=== PATIENT | female | born 1950 | race Asian ===

== ENCOUNTER 2017-06-01 05:59 | Inpatient (IN) | payer MEDICARE, OTHER ==
[~2017-06-01] VITALS: Ht 170.2 cm; Wt 61.7 kg
[~2017-06-01 05:59] MED LIST: INSULIN; PAIN MED
--- NOTE | 2017-06-01 13:00 | NUR ---
RN NOTES PATIENT ARRIVED ON THE FLOOR VIA GURNEY. IN STABLE CONDITION. NO SOB OR ACUTE DISTRESS. PATIENT ALERT, ORIENTED X3. PATIENT SEEN AMBULATING WITH UNSTEADY GAIT. ORIENTED TO FLOOR. CALL LIGHT WITHIN REACH. DR. ROSALBA VÁSQUEZ AWARE OF PATIENTS ARRIVAL WILL CONTINUE TO MONITOR.
--- NOTE | 2017-06-01 15:00 | NUR ---
RN NOTES DR. ROSALBA MENDOZA PAGED FOR ORDERS WAITING FOR CALL BACK.
[2017-06-01 16:54] VITALS: BP 136/73
[2017-06-01] MEDS ORDERED: LISI-603 PO (17:19)
[2017-06-01] MEDS ORDERED: INSU100V7 SQ (17:19)
[2017-06-01] MEDS ORDERED: SIMV20TA6 PO (17:19)
[2017-06-01] MEDS ORDERED: GABA-534 PO (17:19)
[2017-06-01] MEDS ORDERED: TRAM50TA2 PO (18:10)
--- NOTE | 2017-06-01 19:35 | NUR ---
RN NOTES PATIENT IN BED RESTING NO SOB OR ACUTE DISTRESS NOTED. DR. ROSALBA MENDOZA AWARE WAITING FOR ORDERS. PATIENT IN STABLE CONDITION. WILL ENDORSE CARE TO PM SHIFT.
--- NOTE | 2017-06-01 19:40 | NUR ---
RN INITIAL NOTES PATIENT RECEIVED IN BED, AWAKE, ALERT AND ORIENTED X 4, NOTED WITH NO SOB, BREATHING EVEN AND UNLABORED, NO C/O PAIN, NO S/S OF ACUTE DISTRESS. PATIENT AWARE OF SAFETY NEEDS, WILL CONTINUE TO MONITOR. CALL LIGHT PLACED WITHIN EASY REACH.
[2017-06-01 20:00] VITALS: BP 133/75
[2017-06-01] MEDS ORDERED: MAGNESIUM HYDROXIDE 30 ML UDC PO PRN (20:30)
[2017-06-01] MEDS ORDERED: TRAMADOL HCL 50 MG TABLET PO PRN (20:30)
[2017-06-01] MEDS ORDERED: *INSULIN REGULAR(HUMULIN R)HUM 100 UNIT/ML VIAL SQ PRN (20:30)
[2017-06-01] MEDS ORDERED: ZOLPIDEM TARTRATE 5 MG TABLET PO PRN (20:30)
[2017-06-01] MEDS ORDERED: ACETAMINOPHEN 325 MG TABLET PO PRN (20:30)
[2017-06-01] MEDS ORDERED: DEXTROSE 50%-WATER 50 ML DISP.SYRIN IV PRN (20:30)
[2017-06-01] MEDS ORDERED: ONDANSETRON HCL/PF 4 MG/2 ML VIAL IVP PRN (20:30)
--- NOTE | 2017-06-01 20:36 | NUR ---
RN NOTES RECEIVED ADMISSION ORDERS FORM SUSHMA RG. ALL ORDERS NOTED AND CARRIED OUT.
[2017-06-01] MEDS: BLOOD SUGAR DIAGNOSTIC 1 EACH STRIP VI SCH (21:44)
[2017-06-02] VITALS: BP 185/78
[2017-06-02 00:05] VITALS: BP 200/83
--- NOTE | 2017-06-02 00:15 | NUR ---
RN NOTES PATIENT SEEN AND EXAMINED BY SUSHMA RG, RECEIVED NEW ORDERS FOR IV HYDRATION. ORTHOSTATIC BP CHECK DONE, SURVEY COORDINATOR INFORMED. AWAITING ORDERS.
[2017-06-02] MEDS ORDERED: hydrALAZINE HCL 10 MG TABLET ONE (01:15)
[2017-06-02 01:20] VITALS: BP 185/88
[2017-06-02] MEDS: hydrALAZINE HCL 10 MG TABLET PO PRN ×3 (01:20→21:28)
--- NOTE | 2017-06-02 01:20 | NUR ---
RN NOTE HYDRALAZINE 10 MG 1 TAB PO GIVEN FOR BP: 185/88 HR: 90 BPM
[2017-06-02] MEDS: IV NS 0.9% 1,000 ML IV PRN (02:10)
[2017-06-02] MEDS ORDERED: AMLODIPINE BESYLATE 5 MG TABLET PO ONE ×2 (04:30→06:30)
--- NOTE | 2017-06-02 04:44 | NUR ---
RN NOTES NORVASC 5 MG 1 TAB PO X 1 DOSE GIVEN FOR BP: 167/77 HR: 73 BPM.
--- NOTE | 2017-06-02 04:44 | NUR ---
RN NOTES PATIENT NOTED WITH ELEVATED BP, RELAYED TO SUSHMA RG WITH NEW ORDER FOR NORVASC 5 MG 1 TAB PO X 1 DOSE. ALL ORDERS NOTED AND CARRIED OUT. PATIENT MADE AWARE AND AGREES WITH PLAN OF CARE.
[2017-06-02 06:16] VITALS: BP 176/84
--- NOTE | 2017-06-02 06:16 | NUR ---
RN NOTES PATIENT'S BP RE-ASSESSED, NOTED TO STILL BE ELEVATED @ 176/84 HR @ 77 BPM. RELAYED TO CASINO DUTY MANAGER VENTURA RG WITH NEW ORDER FOR NORVASC 5 MG 1 TAB PO X 1 DOSE. ALL ORDERS NOTED AND CARRIED OUT. PATIENT MADE AWARE AND AGREES WITH PLAN OF CARE. WILL CONTINUE TO MONITOR.
[2017-06-02] MEDS ORDERED: AMLODIPINE BESYLATE 5 MG TABLET PO SCH (06:30)
[2017-06-02] MEDS: BLOOD SUGAR DIAGNOSTIC 1 EACH STRIP VI SCH ×4 (06:31→21:29)
--- NOTE | 2017-06-02 06:31 | NUR ---
RN NOTES ACCUCHECK DONE, BLOOD SUGAR @ 116 MG/DL, NO INSULIN GIVEN PER MD'S ORDER. WILL CONTINUE TO MONITOR.
[2017-06-02 07:11] LABS: CALCIUM, SERUM 9.2 mg/dL (8.5-10.1); MAGNESIUM 1.8 mg/dL (1.8-2.4); PHOSPHORUS 3.3 mg/dL (2.5-4.9); POTASSIUM 3.4 mmol/L (3.5-5.1)
[2017-06-02 07:12] LABS: BASOPHILS % (AUTO) 0.6 % (0.0-2.0); EOSINOPHILS # (AUTO) 0.1 /CMM (0.0-0.7); EOSINOPHILS % (AUTO) 1.2 % (0.0-6.0); HEMATOCRIT 34 % (33-45); HEMOGLOBIN 11.7 g/dL (11.5-14.8); LYMPHOCYTES # (AUTO) 2.9 /CMM (0.8-4.8); LYMPHOCYTES % (AUTO) 38.8 % (20.0-44.0); MEAN CORPUSCULAR HEMOGLOBIN 32 PG (26.0-33.0); MEAN CORPUSCULAR HGB CONC 35 g/dl (31.0-36.0); MEAN CORPUSCULAR VOLUME 92 fL (82-100); MONOCYTES # (AUTO) 0.6 /CMM (0.1-1.30); MONOCYTES % (AUTO) 7.9 % (2.0-12.0); NEUTROPHILS # (AUTO) 3.8 /CMM (1.8-8.9); NEUTROPHILS % (AUTO) 51.5 % (43.0-81.0); PLATELET COUNT (AUTO) 162 /CMM (150-450); RDW COEFFICIENT OF VARIATION 14.4 (11.5-15.0); RED BLOOD CELL COUNT(AUTO) 3.71 MIL/uL (4.0-5.2); WHITE BLOOD COUNT (AUTO) 7.4 K/uL (4.3-11.0)
--- NOTE | 2017-06-02 07:25 | NUR ---
RN CLOSING NOTES PATIENT IN BED, AWAKE, ALERT AND ORIENTED X 4, NO SOB NOTED, BREATHING EVEN AND UNLABORED, NO C/O PAIN AT THIS TIME, IN NO ACUTE DISTRESS. PT CONTINUES TO RECEIVE NS @ 75 ML/HR VIA RFA IV PERIPHERAL LINE. ALL PATIENT'S NEEDS ATTENDED TO. BED PLACED IN LOW POSITION AND LOCKED IN PLACE. PLACED CALL LIGHT WITHIN EASY REACH. WILL ENDORSE TO AM NURSE FOR CONTINUITY OF CARE.
[2017-06-02 08:00] VITALS: BP 164/90
--- NOTE | 2017-06-02 08:00 | NUR ---
MS RN OPENING NOTES PATIENT IN BED AWAKE, VERBALLY RESPONSIVE. NO SOB NOTED. NO SIGN OF ACUTE DISTRESS NOTED. BREATHING EVEN AND UNLABORED.IV ON RFA AND RAC PATENT AND INTACT. SAFETY MEASURES IN PLACE. CALL LIGHT PLACED WITHIN REACH. WILL CONTNUE TO MONITOR ACCORDINGLY.
[2017-06-02] MEDS: LISINOPRIL (20MG) 20 MG TABLET PO SCH (08:53)
[2017-06-02] MEDS: GABAPENTIN 300 MG CAPSULE PO SCH (08:53)
[2017-06-02] MEDS ORDERED: POTASSIUM CHLORIDE 20 MEQ TAB.PRT.SR PO ONE (10:30)
[2017-06-02] MEDS: INSULIN REGULAR, HUMAN 100 UNIT/ML 3 ML VIAL SQ PRN ×3 (12:22→21:32)
[2017-06-02] MEDS: CEFTRIAXONE 1 G in IV D5W 50 ML IV SCH (14:47)
[2017-06-02 16:00] VITALS: BP 173/71
[2017-06-02] MEDS ORDERED: SIMVASTATIN 20 MG TABLET PO SCH (18:00)
--- NOTE | 2017-06-02 19:05 | NUR ---
RN OPENING NOTES RECEIVED REPORT FROM AM RN. PATIENT A/A/O X3, ABLE TO MAKE NEEDS KNOWN. BREATHING EVEN & UNLABORED, ON ROOM AIR. DENIES SOB OR DIFFICULTY BREATHING . PULSES PRESENT. RIGHT FOREARM IV #22 INTACT & PATENT W/ DRESSING CDI & IVF NS @ 75 ML/HR. DENIES ANY PAIN OR DISCOMFORT @ THIS TIME. NOTED W/ STEADY GAIT BUT SAFETY MEASURES STILL IN PLACE W/ SIDE RAILS UP, BED LOCKED & IN LOWEST POSITION & CALL LIGHT WITHIN REACH. WILL CONTINUE TO MONITOR.
[2017-06-03] MEDS: IV NS 0.9% 1,000 ML IV PRN (00:58)
[2017-06-03] MEDS: hydrALAZINE HCL 10 MG TABLET PO PRN (05:30)
[2017-06-03 05:43] VITALS: BP 191/88
[2017-06-03 05:44] VITALS: BP_SYST 200; BP_SYST 203; BP_DIAS 88; BP_DIAS 91
--- NOTE | 2017-06-03 05:46 | NUR ---
RN NOTES ORTHOSTATIC BP COMPLETED. SUPINE 191/88, HR 84; SITTING 203/88, HR 84; STANDING 200/91, HR 90. PATIENT DENIES ANY DIZZINESS, LIGHTHEADEDNESS OR HEADACHE.
--- NOTE | 2017-06-03 06:21 | NUR ---
RN NOTES SPOKE TO VENTURA REGARDING PT'S ELEVATED BP. RECEIVED ORDER TO DC IV FLUIDS & ADMINISTER BP MED DOSE EARLY. ORDER NOTED & CARRIED OUT.
[2017-06-03] MEDS: LISINOPRIL (20MG) 20 MG TABLET PO SCH (06:35)
[2017-06-03 06:51] LABS: BASOPHILS % (AUTO) 0.2 % (0.0-2.0); EOSINOPHILS % (AUTO) 0.6 % (0.0-6.0); HEMATOCRIT 40 % (33-45); HEMOGLOBIN 13.5 g/dL (11.5-14.8); LYMPHOCYTES % (AUTO) 26.2 % (20.0-44.0); MEAN CORPUSCULAR HEMOGLOBIN 31 PG (26.0-33.0); MEAN CORPUSCULAR HGB CONC 34 g/dl (31.0-36.0); MEAN CORPUSCULAR VOLUME 90 fL (82-100); MONOCYTES # (AUTO) 0.5 /CMM (0.1-1.30); MONOCYTES % (AUTO) 5.8 % (2.0-12.0); NEUTROPHILS # (AUTO) 5.3 /CMM (1.8-8.9); NEUTROPHILS % (AUTO) 67.2 % (43.0-81.0); PLATELET COUNT (AUTO) 190 /CMM (150-450); RDW COEFFICIENT OF VARIATION 13.3 (11.5-15.0); RED BLOOD CELL COUNT(AUTO) 4.41 MIL/uL (4.0-5.2); WHITE BLOOD COUNT (AUTO) 7.8 K/uL (4.3-11.0)
[2017-06-03 07:00] LABS: CALCIUM, SERUM 9.8 mg/dL (8.5-10.1)
--- NOTE | 2017-06-03 07:50 | NUR ---
RN OPENING NOTES RECEIVED PT. A/OX4. NO S/S OF RESPIRATORY DISTRESS OR SOB. PT IS ON RA, 02 SAT WNL. PT DENIES PAIN AT THIS TIME. BRUISES ON CHIN NOTED FROM S/P FALL. IV ACCESS LOCATED ON RIGHT FOREARM 22G, SL. SAFETY MEASURES IN PLACE, CALL LIGHT WITHIN REACH. WILL CONTINUE TO MONITOR.
[2017-06-03 08:00] VITALS: BP 188/87
[2017-06-03] MEDS: GABAPENTIN 300 MG CAPSULE PO SCH (08:00)
[2017-06-03] MEDS: INSULIN REGULAR, HUMAN 100 UNIT/ML 3 ML VIAL SQ PRN ×2 (08:04→12:39)
[2017-06-03 08:05] VITALS: BP 188/87
[2017-06-03] MEDS: BLOOD SUGAR DIAGNOSTIC 1 EACH STRIP VI SCH ×2 (08:06→12:00)
[2017-06-03] MEDS ORDERED: AMLODIPINE BESYLATE 10 MG TABLET PO SCH (09:00)
--- NOTE | 2017-06-03 09:30 | NUR ---
RN NOTES PT IV ACCESS PULLED OUT ON HER OWN. PT REFUSES ADDITIONAL IV INSERTION STATING "I AM GOING HOME TODAY".
--- NOTE | 2017-06-03 11:30 | NUR ---
WOUND CARE CONSULT: PT SITTING IN CHAIR, FULLY DRESSED AND STATED THAT SHE IS GOING HOME. PT NOTED TO HAVE DRY ABRASIONS AND BRUISES TO FACE. PT IS CONTINENT AND AMBULATORY WITH CURRENT MAXWELL SCORE OF 20.
[2017-06-03] MEDS ORDERED: SULF1TAB48 PO (13:30)
[2017-06-03] MEDS ORDERED: AMLO10TA2 PO (13:30)
[2017-06-03] MEDS: CEFTRIAXONE 1 G in IV D5W 50 ML IV SCH (15:00)
--- NOTE | 2017-06-03 19:01 | NUR ---
DISCHARGE NOTE PT DISCHARGED TO HOME. VSS, NO S/S OF RESPIRATORY DISTRESS OR SOB. PT PT HAS NO C/O PAIN. ALL DISCHARGE TEACHING GIVEN TO PT, PT VERBALIZES UNDERSTANDING. ALL DISCHARGE PAPERWORK AND BELONGINGS SHEET SIGNED AND COPIED. WOUND PHOTOGRAPHS TAKEN AND PLACED IN CHART.. IV ACCESS REMOVED. ID BAND REMOVED. PRESCRIPTION COPIED AND PLACED IN CHART. PT LEFT IN PRIVATE CAR.
== END 2017-06-03 15:31 | disposition home or self-care (01) | DRG 689 ==
LOC: MED 12:37 → TELE 21:15 → MED 21:50
PROVIDERS: ADMIT Nurse Practitioner Acute Care; ATTEND Nurse Practitioner Acute Care
DX: N39.0 Urinary tract infection, site not specified (principal); N17.0 Acute kidney failure with tubular necrosis; E11.9 Type 2 diabetes mellitus without complications; E87.6 Hypokalemia; B96.20 Unspecified Escherichia coli [E. coli] as the cause of diseases classified elsewhere; G43.909 Migraine, unspecified, not intractable, without status migrainosus; W19.XXXA Unspecified fall, initial encounter; I10 Essential (primary) hypertension; I95.1 Orthostatic hypotension; Y92.9 Unspecified place or not applicable; Z85.3 Personal history of malignant neoplasm of breast; Z87.891 Personal history of nicotine dependence; Z79.4 Long term (current) use of insulin; Z79.899 Other long term (current) drug therapy
CPT/HCPCS: 36415; 71010-TC; 80048-TC; 80061-TC; 82962-TC; 83735-TC; 84100-TC; 85025-TC; 87081-TC; 87086-TC; 93880-TC; A6402; J0696; J1815; J7030; J7060

== ENCOUNTER 2018-09-24 14:21 | Inpatient (IN) | payer MEDICARE, MEDICAID ==
[2018-09-24] VITALS (21 sets, daily range): BP systolic 121–189; BP diastolic 59–109
[~2018-09-24] VITALS: Ht 167.6 cm; Wt 62.6 kg
[~2018-09-24 14:21] MED LIST changes: +AMLO10TA7 PO; +GABA-534 PO; +INSU100V7 SQ; +LISI-603 PO; -PAIN MED; +SIMV20TA6 PO; +SULF1TAB48 PO; +TRAM50TA2 PO
--- NOTE | 2018-09-24 14:24 | NUR ---
PT [id number], FROM HOME, C/O SOB x 1 MONTH, WORSENING TODAY, 94% ON RA ALBUTEROL 1UD GIVEN BY EMS ON SCENE. PT IS AAOX3, NOTED RESPIRATORY DISTRESS, HOOKED TO ROTARY CUTTER, ELEVATED BP NOTED MD AWARE, KEPT RESTED AND COMFORTABLE, WILL CONTINUE TO MONITOR.
--- NOTE | 2018-09-24 14:25 | NUR ---
SEEN AND EXAMINED BY DR. DOUGHERTY.
[2018-09-24] MEDS ORDERED: ASPIRIN 325 MG TABLET PO ONE (14:30)
[2018-09-24] MEDS ORDERED: NITROGLYCERIN 0.4 MG/TAB BOTTLE SL ONE (14:30)
[2018-09-24] MEDS ORDERED: FUROSEMIDE 40 MG/4 ML VIAL IV ONE (14:30)
--- NOTE | 2018-09-24 14:37 | NUR ---
DIFFICULTY ESTABLISHING IV LINE, CHARGE NURSE AND ER MD AWARE.
[2018-09-24] MEDS ORDERED: NITROGLYCERIN 0.4 MG/TAB BOTTLE ONE (14:48)
[2018-09-24] MEDS ORDERED: ASPIRIN 325 MG TABLET ONE (14:49)
[2018-09-24] MEDS ORDERED: INSU100V9 SQ (15:10)
[2018-09-24] MEDS ORDERED: IBUP-1957 PO (15:10)
[2018-09-24] MEDS ORDERED: INSU100I26 SQ (15:10)
[2018-09-24] MEDS ORDERED: ASPI-1152 PO (15:10)
[2018-09-24] MEDS ORDERED: NTG 50 MG/D5W250 ML BOTTL 250 ML IV ONE (15:30)
--- NOTE | 2018-09-24 15:45 | NUR ---
PICC LINE NURSE AT BEDSIDE, CONSENT SIGNED.
--- NOTE | 2018-09-24 16:20 | NUR ---
LABS DRAWNED AND SENT TO LAB.
[2018-09-24] MEDS ORDERED: FUROSEMIDE 40 MG/4 ML VIAL ONE (16:21)
[2018-09-24 16:22] LABS: BASOPHILS # (AUTO) 0.1 /CMM (0.0-0.2); BASOPHILS % (AUTO) 0.8 % (0.0-2.0); EOSINOPHILS % (AUTO) 0.2 % (0.0-6.0); HEMATOCRIT 32 % (33-45); HEMOGLOBIN 10.5 g/dL (11.5-14.8); LYMPHOCYTES # (AUTO) 1.1 /CMM (0.8-4.8); LYMPHOCYTES % (AUTO) 11.2 % (20.0-44.0); MEAN CORPUSCULAR HGB CONC 33 g/dl (31.0-36.0); MEAN CORPUSCULAR VOLUME 91 fL (82-100); MONOCYTES # (AUTO) 0.5 /CMM (0.1-1.30); MONOCYTES % (AUTO) 4.7 % (2.0-12.0); NEUTROPHILS # (AUTO) 8.5 /CMM (1.8-8.9); NEUTROPHILS % (AUTO) 83.1 % (43.0-81.0); PLATELET COUNT (AUTO) 196 /CMM (150-450); RED BLOOD CELL COUNT(AUTO) 3.46 MIL/uL (4.0-5.2); WHITE BLOOD COUNT (AUTO) 10.2 K/uL (4.3-11.0)
--- NOTE | 2018-09-24 16:38 | NUR ---
NTG 5OMG/250ML D52 STARTED AT 50MCG/HR TITRATE TO EFFECT.
[2018-09-24 16:46] LABS: CALCIUM, SERUM 8.8 mg/dL (8.5-10.1); CREATININE 1.4 mg/dL (0.6-1.3)
[2018-09-24 16:59] LABS: POTASSIUM 3.3 mmol/L (3.5-5.1)
[2018-09-24] MEDS ORDERED: MAG HYDROX/AL HYDROX/SIMETH 30 ML UDC PO PRN (17:30)
[2018-09-24] MEDS ORDERED: DEXTROSE 50%-WATER 50 ML DISP.SYRIN IV PRN (17:30)
[2018-09-24] MEDS ORDERED: TRAMADOL HCL 50 MG TABLET PO PRN (17:30)
[2018-09-24] MEDS ORDERED: ONDANSETRON HCL/PF 4 MG/2 ML VIAL IVP PRN (17:30)
[2018-09-24] MEDS ORDERED: Z GUARD REMEDY 2 OZ OINT TP PRN (17:30)
[2018-09-24] MEDS ORDERED: ZOLPIDEM TARTRATE 5 MG TABLET PO PRN (17:30)
[2018-09-24] MEDS ORDERED: MAGNESIUM HYDROXIDE 30 ML UDC PO PRN (17:30)
--- NOTE | 2018-09-24 17:32 | NUR ---
ICU BED 253 GIVEN
--- NOTE | 2018-09-24 17:45 | NUR ---
REPOR GIVEN TO FRANCO WALLACE FOR JESENIA. NTG DRIP ONGOING, TITRATE TO EFFECT.
--- NOTE | 2018-09-24 18:55 | NUR ---
RN INITIAL NOTES RECEIVED PT AWAKE, A/OX4. ON 02 VIA NC AT 2LPM. NO RESPIRATORY DISTRESS NOTED. NO SOB NOTED. DENIES ANY PAIN. MANDI PICC IN PLACE. NITRO DRIP AT 50MCG/MIN INFUSING. PT CONNECTED TO MONITOR. FC INSERTED, CLEAR YELLOW URINE NOTED. NO HEMATURIA NOTED. BODY ASSESSMENT DONE. PICTURES TAKEN FOR SKIN ISSUES NOTED. PT ORIENTED TO ROOM AND USE OF CALL LIGHT. PT COMFORTABLE. DR MUIR AWARE OF ADMISSION. WILL MONITOR
[2018-09-24] MEDS: FUROSEMIDE 40 MG/4 ML VIAL IV SCH (19:33)
[2018-09-24] MEDS: BLOOD SUGAR DIAGNOSTIC 1 EACH STRIP IN SCH ×2 (19:33→22:05)
[2018-09-24] MEDS: LISINOPRIL (20MG) 20 MG TABLET PO SCH (19:34)
[2018-09-24] MEDS: SIMVASTATIN 20 MG TABLET PO SCH (19:34)
[2018-09-24] MEDS: ASPIRIN EC 81 MG TABLET.DR PO SCH (19:34)
[2018-09-24] MEDS: ACETAMINOPHEN 325 MG TABLET PO PRN (19:34)
[2018-09-24] MEDS: NTG 50 MG/D5W250 ML BOTTL 250 ML IV PRN (19:45)
--- NOTE | 2018-09-24 20:00 | NUR ---
MANUAL WINDER - NOTES - RECEIVED PT AWAKE, A/OX4. ON 02 VIA NC AT 2LPM. NO RESPIRATORY DISTRESS NOTED. NO SOB NOTED. DENIES ANY PAIN. MANDI PICC IN PLACE. NITRO DRIP AT 50MCG/MIN INFUSING. PT CONNECTED TO MONITOR. FC INSERTED, CLEAR YELLOW URINE NOTED. NO HEMATURIA NOTED. PT ORIENTED TO ROOM AND USE OF CALL LIGHT. PT COMFORTABLE. WILL MONITOR
[2018-09-24] MEDS: HYDROCODONE/APAP 5/325MG 1 EACH TABLET PO PRN (20:40)
[2018-09-24] MEDS ORDERED: ENOXAPARIN SODIUM 40 MG/0.4 ML DISP.SYRIN SQ SCH (21:00)
[2018-09-24] MEDS: GABAPENTIN 300 MG CAPSULE PO SCH (21:52)
[2018-09-24] MEDS: *INSULIN REGULAR(HUMULIN R)HUM 100 UNIT/ML VIAL SQ PRN (22:27)
[2018-09-25] VITALS (57 sets, daily range): BP systolic 101–183; BP diastolic 45–97
[2018-09-25] MEDS ORDERED: NTG 50 MG/D5W250 ML BOTTL 250 ML IV ONE (01:53)
[2018-09-25] MEDS: NTG 50 MG/D5W250 ML BOTTL 250 ML IV PRN (02:02)
[2018-09-25 04:41] LABS: BASOPHILS # (AUTO) 0.1 /CMM (0.0-0.2); BASOPHILS % (AUTO) 0.7 % (0.0-2.0); EOSINOPHILS % (AUTO) 1.1 % (0.0-6.0); HEMATOCRIT 29 % (33-45); HEMOGLOBIN 9.7 g/dL (11.5-14.8); LYMPHOCYTES # (AUTO) 2.1 /CMM (0.8-4.8); LYMPHOCYTES % (AUTO) 25.2 % (20.0-44.0); MEAN CORPUSCULAR HGB CONC 34 g/dl (31.0-36.0); MEAN CORPUSCULAR VOLUME 90 fL (82-100); MONOCYTES # (AUTO) 0.7 /CMM (0.1-1.30); MONOCYTES % (AUTO) 8.9 % (2.0-12.0); NEUTROPHILS # (AUTO) 5.2 /CMM (1.8-8.9); NEUTROPHILS % (AUTO) 64.1 % (43.0-81.0); PLATELET COUNT (AUTO) 187 /CMM (150-450); RED BLOOD CELL COUNT(AUTO) 3.18 MIL/uL (4.0-5.2); WHITE BLOOD COUNT (AUTO) 8.2 K/uL (4.3-11.0)
[2018-09-25 04:53] LABS: ALBUMIN 2.6 g/dL (3.4-5.0); BILIRUBIN,TOTAL 0.3 mg/dL (0.2-1.0); CALCIUM, SERUM 8.9 mg/dL (8.5-10.1); CREATININE 1.5 mg/dL (0.6-1.3); MAGNESIUM 1.9 mg/dL (1.8-2.4); PHOSPHORUS 4.9 mg/dL (2.5-4.9); POTASSIUM 3.7 mmol/L (3.5-5.1); TOTAL PROTEIN, SERUM 6.4 g/dL (6.4-8.2)
[2018-09-25 05:04] LABS: THYROID STIMULATING HORMONE 1.263 uIU/mL (0.358-3.74)
--- NOTE | 2018-09-25 07:00 | NUR ---
RN NOTES RECEIVED PT ON BED , A/Ox4, ON RA, RESPIRATION EVEN AND UNLABORED,NO SOB NOTED, ON TELE SR HR IN 80'S, BURRELL DRINING TO GRVITY , NITRO GTT AT 50 MCG/MIN RUNNING VIA R UPPER ARM PICC LINE , SITE CLEAN, DRY AND INTACT, SR UP X3, CALL LIGHT WITHIN EASY REACH, BED LOCKED AND IN LOWEST POSITION , CONTINUE TO MONITOR .
[2018-09-25] MEDS: LISINOPRIL (20MG) 20 MG TABLET PO SCH (08:35)
[2018-09-25] MEDS: FUROSEMIDE 40 MG/4 ML VIAL IV SCH ×2 (08:35→16:41)
[2018-09-25] MEDS: ASPIRIN EC 81 MG TABLET.DR PO SCH (08:35)
[2018-09-25] MEDS: BLOOD SUGAR DIAGNOSTIC 1 EACH STRIP IN SCH ×4 (08:36→21:48)
[2018-09-25] MEDS: POTASSIUM CHLORIDE 20 MEQ TAB.PRT.SR PO SCH ×3 (08:38→10:05)
[2018-09-25] MEDS: ENOXAPARIN SODIUM 60 MG/0.6 ML DISP.SYRIN SQ SCH ×2 (08:38→21:35)
--- NOTE | 2018-09-25 09:00 | NUR ---
RN NOTES DR SHERMAN NOTIFED REGARDING EKG AND TROPONIN RESULTS,.
--- NOTE | 2018-09-25 09:56 | NUR ---
RN NOTES SBP IN 170'S -180'S, DR SHERMAN NOTIFIED , NEW ORDER RECEIVED , CONTINUE TO MONITOR .
[2018-09-25] MEDS: hydrALAZINE HCL 50 MG TABLET PO SCH ×3 (10:05→16:39)
[2018-09-25] MEDS: INSULIN REGULAR, HUMAN 100 UNIT/ML 3 ML VIAL SQ PRN (11:41)
[2018-09-25] MEDS: METOPROLOL TARTRATE 50 MG TABLET PO SCH ×2 (11:43→17:11)
--- NOTE | 2018-09-25 15:00 | NUR ---
RN NOTES ZT=374/89 HR= 70, DR SHERMAN NOTIFED , NEW ORDER RECEIVED, CONTINUE TO MONITOR .
[2018-09-25] MEDS: HYDROCODONE/APAP 5/325MG 1 EACH TABLET PO PRN (15:35)
[2018-09-25] MEDS: ISOSORBIDE DINITRATE (20MG) 20 MG TABLET PO SCH (16:39)
[2018-09-25] MEDS: SIMVASTATIN 20 MG TABLET PO SCH (17:10)
--- NOTE | 2018-09-25 18:20 | NUR ---
RN NOTES PT TRANSFERRED TO ROOM 119-1 , TELE STATUS, VIA ACLS PROTOCOL WITH ALL BELONGING IN STABLE CONDITION. WILL ENDORSE TO RELAY RECORD CLERK NURSE FOR CONTINUITY CARE.
--- NOTE | 2018-09-25 18:40 | NUR ---
RN NOTES PT CONFUSED , AGITATED, PULLED HER BURRELL CATHETER OUT . OUT OF BED WANTS TO LEAVE AND GO HOME, REORIENTED PT TO ROOM AND SURROUNDING. PT SILL AGITATED, AND COMBATIVE . CONTINUE TO MONITOR .
--- NOTE | 2018-09-25 19:15 | NUR ---
RN NOTES PT UP AND WALKING IN [address] AND STILL CONFUSED AND AGITATED, CESAR HARE FARM MECHANIC NOTIFED, NEW ORDER RECEIVED , WILL ENDORSE TO LEAN SIX SIGMA BLACK BELT NURSE FOR CONTINUITY OF CARE.
[2018-09-25] MEDS ORDERED: LORAZEPAM INJ 2 MG/ML VIAL IV ONE (19:30)
[2018-09-25] MEDS: GABAPENTIN 300 MG CAPSULE PO SCH (21:35)
[2018-09-25] MEDS: *INSULIN REGULAR(HUMULIN R)HUM 100 UNIT/ML VIAL SQ PRN (21:50)
--- NOTE | 2018-09-25 22:00 | NUR ---
SPOKE TO PTS NEPHEW PAULINE [phone], HE WAS UPDATED ON PTS CONDITION AND PLAN OF CARE. I TOLD HIM THAT SHE IS GETTING CONFUSED, AGITATED AND COMBATIVE. HE REQUESTED TO HAVE THE PT EVALUATED BY LINNEA, WILL ENDORSE TO DAY SHIFT. HE SAID PTS WILL COME TO HELP CALM DOWN PT.
--- NOTE | 2018-09-25 22:20 | NUR ---
PT FINALLY CALMED DOWN AND WENT TO SLEEP, PT INFORMED OF PT CONDITION, PT IS SLEEPING COMFORTABLY. WILL CONTINUE TO MONITOR
[2018-09-26] VITALS: BP 147/71
[2018-09-26] MEDS: METOPROLOL TARTRATE 50 MG TABLET PO SCH ×5 (00:11→23:51)
--- NOTE | 2018-09-26 03:45 | NUR ---
PT IS TRYING TO PULL OUT IV, PULL OF GOWN AND GET UP AND FALL, LABOR AND EMPLOYMENT PARALEGAL CESAR LOCKE NOTIFIED OF PT BEHAVIOR AND GAVE ORDER FOR 1:1 SITTER
[2018-09-26 04:00] VITALS: BP 136/69
[2018-09-26 06:28] LABS: BASOPHILS # (AUTO) 0.1 /CMM (0.0-0.2); EOSINOPHILS % (AUTO) 1.7 % (0.0-6.0); HEMATOCRIT 31 % (33-45); HEMOGLOBIN 10.4 g/dL (11.5-14.8); LYMPHOCYTES # (AUTO) 2.1 /CMM (0.8-4.8); LYMPHOCYTES % (AUTO) 27.8 % (20.0-44.0); MEAN CORPUSCULAR HGB CONC 34 g/dl (31.0-36.0); MEAN CORPUSCULAR VOLUME 90 fL (82-100); MONOCYTES # (AUTO) 0.6 /CMM (0.1-1.30); MONOCYTES % (AUTO) 8.6 % (2.0-12.0); NEUTROPHILS # (AUTO) 4.6 /CMM (1.8-8.9); NEUTROPHILS % (AUTO) 60.9 % (43.0-81.0); PLATELET COUNT (AUTO) 207 /CMM (150-450); RED BLOOD CELL COUNT(AUTO) 3.43 MIL/uL (4.0-5.2); WHITE BLOOD COUNT (AUTO) 7.5 K/uL (4.3-11.0)
[2018-09-26 06:57] LABS: ALBUMIN 2.9 g/dL (3.4-5.0); BILIRUBIN,TOTAL 0.5 mg/dL (0.2-1.0); CALCIUM, SERUM 9.2 mg/dL (8.5-10.1); CREATININE 1.5 mg/dL (0.6-1.3); MAGNESIUM 1.9 mg/dL (1.8-2.4); PHOSPHORUS 3.6 mg/dL (2.5-4.9); POTASSIUM 3.4 mmol/L (3.5-5.1); TOTAL PROTEIN, SERUM 7.1 g/dL (6.4-8.2)
--- NOTE | 2018-09-26 07:00 | NUR ---
RN NOTES RECEIVED PT ON BED, ALERT/ CONFUSED, COOPERATIVE AT THIS TIME ,ON RA , RESPIRATION EVEN AND UNLABORED, NO SOB NOTED, ON TELE SR HR IN 70'S , SITTER AT THE BEDSIDE FOR PT SAFETY , R UPPER ARM PICC LINE SITE CLEAN, DRY, INTACT, SR UP x3, CALL LIGHT WITHIN EASY REACH, BED LOCKED AND IN LOWEST POSITION , CONTINUE TO MONITOR .
[2018-09-26 08:00] VITALS: BP 148/74
[2018-09-26] MEDS: BLOOD SUGAR DIAGNOSTIC 1 EACH STRIP IN SCH ×4 (08:12→21:31)
[2018-09-26] MEDS: ENOXAPARIN SODIUM 60 MG/0.6 ML DISP.SYRIN SQ SCH ×2 (08:15→21:29)
[2018-09-26] MEDS: ISOSORBIDE DINITRATE (20MG) 20 MG TABLET PO SCH ×2 (08:17→16:22)
[2018-09-26] MEDS: FUROSEMIDE 40 MG/4 ML VIAL IV SCH ×2 (08:18→16:21)
[2018-09-26] MEDS: hydrALAZINE HCL 50 MG TABLET PO SCH ×3 (08:18→16:22)
[2018-09-26] MEDS: LISINOPRIL (20MG) 20 MG TABLET PO SCH (08:18)
[2018-09-26] MEDS: ASPIRIN EC 81 MG TABLET.DR PO SCH (08:19)
[2018-09-26] MEDS: AMLODIPINE BESYLATE 5 MG TABLET PO SCH (09:33)
[2018-09-26] MEDS: POTASSIUM CHLORIDE 20 MEQ TAB.PRT.SR PO SCH ×2 (09:33→11:31)
[2018-09-26] MEDS: INSULIN REGULAR, HUMAN 100 UNIT/ML 3 ML VIAL SQ PRN ×2 (11:54→16:57)
--- NOTE | 2018-09-26 15:25 | NUR ---
FRANCO AMOS PT IS STILL CONFUSED AND AGITATED, PSYCH CONSULT ORDERED , [facility] NOTIFIED AND FACE SHEET FAXED TO [facility]
[2018-09-26 16:00] VITALS: BP 102/63
[2018-09-26] MEDS: SIMVASTATIN 20 MG TABLET PO SCH (17:00)
--- NOTE | 2018-09-26 18:13 | NUR ---
RN NOTES NO SIGNIFICANT CHANGES NOTED ON THIS SHIFT, SITTER AT THE BEDSIDE FOR PT SAFETY, VSS STABLE, WILL ENDOSE TO DIGITAL ASSOCIATE NURSE FOR CONTINUITY OF CARE .
--- NOTE | 2018-09-26 19:15 | NUR ---
RN M/S NOTE PATIENT IS AOX2-3, SPEECH CLEAR, ABLE TO MAKE NEEDS KNOWN, ON ROOM AIR, NO S/SX OF CARDIAC OR RESPIRATORY DISTRESS, MANDI PICC LINE, PATENT FLUSHING WELL, SITE IS CLEAN AND DRY, SKIN KEPT CLEAN AND DRY, WILL CONTINUE TO MONITOR FOR ANY CHANGES IN CONDITION, SAFETY MAINTAINED AT ALL TIMES BED IN LOW LOCKED POSITION, CALL LIGHT WITHIN REACH.
[2018-09-26 20:00] VITALS: BP 105/55
[2018-09-26] MEDS: *INSULIN REGULAR(HUMULIN R)HUM 100 UNIT/ML VIAL SQ PRN (21:30)
[2018-09-26] MEDS: ESCITALOPRAM OXALATE (10 MG) 10 MG TABLET PO SCH (21:31)
[2018-09-26] MEDS: GABAPENTIN 300 MG CAPSULE PO SCH (21:31)
[2018-09-27 04:00] VITALS: BP 122/68
[2018-09-27] MEDS: METOPROLOL TARTRATE 50 MG TABLET PO SCH ×5 (05:06→21:37)
[2018-09-27 06:31] LABS: BASOPHILS # (AUTO) 0.1 /CMM (0.0-0.2); BASOPHILS % (AUTO) 1.1 % (0.0-2.0); HEMATOCRIT 32 % (33-45); HEMOGLOBIN 10.8 g/dL (11.5-14.8); LYMPHOCYTES # (AUTO) 2.4 /CMM (0.8-4.8); LYMPHOCYTES % (AUTO) 38.1 % (20.0-44.0); MEAN CORPUSCULAR HGB CONC 34 g/dl (31.0-36.0); MEAN CORPUSCULAR VOLUME 90 fL (82-100); MONOCYTES # (AUTO) 0.7 /CMM (0.1-1.30); MONOCYTES % (AUTO) 10.9 % (2.0-12.0); NEUTROPHILS # (AUTO) 2.9 /CMM (1.8-8.9); NEUTROPHILS % (AUTO) 46.9 % (43.0-81.0); PLATELET COUNT (AUTO) 217 /CMM (150-450); RED BLOOD CELL COUNT(AUTO) 3.58 MIL/uL (4.0-5.2); WHITE BLOOD COUNT (AUTO) 6.2 K/uL (4.3-11.0)
[2018-09-27 06:50] LABS: ALBUMIN 2.9 g/dL (3.4-5.0); BILIRUBIN,TOTAL 0.6 mg/dL (0.2-1.0); CALCIUM, SERUM 9.3 mg/dL (8.5-10.1); CREATININE 1.6 mg/dL (0.6-1.3); MAGNESIUM 2.3 mg/dL (1.8-2.4); PHOSPHORUS 3.7 mg/dL (2.5-4.9); POTASSIUM 3.8 mmol/L (3.5-5.1); TOTAL PROTEIN, SERUM 7.3 g/dL (6.4-8.2)
--- NOTE | 2018-09-27 07:05 | NUR ---
MS RN OPENING NOTES RECEIVED PT LYING ON BED,ALERT/ORIENTED X2.ON ROOM AIR,TOLERATING WELL.NO SOB AND ACUTE DISTRESS NOTED.1:1 SITTER IS AT BEDSIDE.NO PAIN NOTED FOR NOW.RIGHT UA PICC LINE PRESENT.SITE IS CLEAN,DRY AND INTACT.NO INFILTRATION NOTED.BED IS IN LOW POSITION AND LOCKED,CALL LIGHT IS WITHIN REACH.WILL CONTINUE TO MONITOR THE PT CLOSELY.
[2018-09-27] MEDS: BLOOD SUGAR DIAGNOSTIC 1 EACH STRIP IN SCH ×4 (07:50→21:41)
[2018-09-27] MEDS: INSULIN REGULAR, HUMAN 100 UNIT/ML 3 ML VIAL SQ PRN ×3 (07:51→17:10)
[2018-09-27 08:00] VITALS: BP 149/74
[2018-09-27] MEDS: FUROSEMIDE 40 MG/4 ML VIAL IV SCH ×2 (09:07→16:49)
[2018-09-27] MEDS: AMLODIPINE BESYLATE 5 MG TABLET PO SCH (09:08)
[2018-09-27] MEDS: ISOSORBIDE DINITRATE (20MG) 20 MG TABLET PO SCH ×2 (09:08→16:51)
[2018-09-27] MEDS: LISINOPRIL (20MG) 20 MG TABLET PO SCH (09:08)
[2018-09-27] MEDS: hydrALAZINE HCL 50 MG TABLET PO SCH ×3 (09:09→16:49)
[2018-09-27] MEDS: ASPIRIN EC 81 MG TABLET.DR PO SCH (09:10)
[2018-09-27] MEDS: ENOXAPARIN SODIUM 60 MG/0.6 ML DISP.SYRIN SQ SCH ×2 (11:51→21:00)
[2018-09-27 16:00] VITALS: BP 113/60
--- NOTE | 2018-09-27 16:40 | NUR ---
MS RN NOTES EDGARDO,FERRYBOAT OPERATOR FROM NUCLEAR MEDICINE ORDERED TO KEEP NPO MIDNIGHT,AND HOLD BP MEDS IN AM TO PERFORM NM MYOCARDIAL STRESS TEST.NEW ORDERS NOTED AND CARRIED OUT.FAMILY AND PT MADE AWARE.
[2018-09-27] MEDS: SIMVASTATIN 20 MG TABLET PO SCH (17:02)
--- NOTE | 2018-09-27 18:57 | NUR ---
MS RN CLOSING NOTES PT IS LYING ON BED,ALERT/ORIENTED X2.ON ROOM AIR,TOLERATING WELL.NO SOB AND ACUTE DISTRESS NOTED.1:1 SITTER IS AT BEDSIDE.NO PAIN NOTED FOR NOW.RIGHT UA PICC LINE PRESENT.SITE IS CLEAN,DRY AND INTACT.NO INFILTRATION NOTED.RESPIRATION IS EVEN AND NONLABORED.NO SIGNIFICANT CHANGES NOTED IN THE SHIFT.BED IS IN LOW POSITION AND LOCKED,CALL LIGHT IS WITHIN REACH.ENDORSED TO SUPERVISOR FLOOR ASSEMBLY RN FOR JESENIA AND NPO STATUS AT MIDNIGHT.
[2018-09-27 20:00] VITALS: BP 133/66
--- NOTE | 2018-09-27 20:00 | NUR ---
RN INITIAL NOTES RECEIVED PT LYING ON BED,ALERT/ORIENTED X2.ON ROOM AIR,TOLERATING WELL.NO SOB AND ACUTE DISTRESS NOTED.1:1 SITTER IS AT BEDSIDE.NO PAIN NOTED FOR NOW.RIGHT UA PICC LINE PRESENT.SITE IS CLEAN,DRY AND INTACT.NO INFILTRATION NOTED.BED IS IN LOW POSITION AND LOCKED,CALL LIGHT IS WITHIN REACH.WILL CONTINUE TO MONITOR THE PT CLOSELY.
[2018-09-27] MEDS: GABAPENTIN 300 MG CAPSULE PO SCH (21:40)
[2018-09-27] MEDS: ESCITALOPRAM OXALATE (10 MG) 10 MG TABLET PO SCH (21:41)
[2018-09-27] MEDS: *INSULIN REGULAR(HUMULIN R)HUM 100 UNIT/ML VIAL SQ PRN (21:48)
[2018-09-28 04:00] VITALS: BP 144/65
--- NOTE | 2018-09-28 06:43 | NUR ---
RN CLOSING NOTES PT IS LYING ON BED,ALERT/ORIENTED X2.ON ROOM AIR,TOLERATING WELL.NO SOB AND ACUTE DISTRESS NOTED.1:1 SITTER IS AT BEDSIDE.NO PAIN NOTED FOR NOW.RIGHT UA PICC LINE PRESENT S/L.SITE IS CLEAN,DRY AND INTACT.NO INFILTRATION NOTED.RESPIRATION IS EVEN AND NONLABORED. PT KEPT NPO. NO SIGNIFICANT CHANGES NOTED IN THE SHIFT.BED IS IN LOW POSITION AND LOCKED,CALL LIGHT IS WITHIN REACH.WILL ENDORSE TO AM RN FOR JESENIA NPO.
--- NOTE | 2018-09-28 07:00 | NUR ---
MS RN OPENING NOTES RECEIVED PT LYING ON BED,ALERT/ORIENTED X2.ON ROOM AIR,TOLERATING WELL.NO SOB AND ACUTE DISTRESS NOTED.NO PAIN NOTED FOR NOW.RIGHT UA PICC LINE 3 PORT PRESENT.SITE IS CLEAN,DRY AND INTACT.ON NPO FOR MYOCARDIAL STRESS TEST.NO INFILTRATION NOTED.BED IS IN LOW POSITION AND LOCKED,CALL LIGHT IS WITHIN REACH.WILL CONTINUE TO MONITOR THE PT CLOSELY.
[2018-09-28] MEDS: BLOOD SUGAR DIAGNOSTIC 1 EACH STRIP IN SCH ×4 (07:51→21:48)
[2018-09-28] MEDS: INSULIN REGULAR, HUMAN 100 UNIT/ML 3 ML VIAL SQ PRN ×2 (07:52→17:11)
[2018-09-28 08:00] VITALS: BP 114/56
[2018-09-28] MEDS ORDERED: REGADENOSON 0.4 MG/5 ML DISP.SYRIN IVP ONE (08:00)
--- NOTE | 2018-09-28 08:00 | NUR ---
MS RN NOTES YVONNE REYNOSO STONE SPREADER OPERATOR SEEN THE PT AND ADMINISTERED IV LEXISCAN.PT TOLERATED WELL
--- NOTE | 2018-09-28 08:15 | NUR ---
MS RN NOTES PT SEND TO DO THE MYOCARDIAL STRESS TEST.
--- NOTE | 2018-09-28 09:30 | NUR ---
MS RN NOTES PT CAME BACK FROM STRESS TEST,EDGARDO TEJADA ORDERED TO RESUME ALL THE ORDERS AND AFTER AN HOUR WILL WINDOW AND DOOR INSTALLER THE PT AGAIN FOR 2ND STEP OF STRESS TEST.
[2018-09-28] MEDS: ASPIRIN EC 81 MG TABLET.DR PO SCH (09:43)
[2018-09-28] MEDS: FUROSEMIDE 40 MG TABLET PO SCH (09:43)
[2018-09-28] MEDS: AMLODIPINE BESYLATE 5 MG TABLET PO SCH (09:51)
[2018-09-28] MEDS: LISINOPRIL (20MG) 20 MG TABLET PO SCH (09:52)
[2018-09-28] MEDS: hydrALAZINE HCL 50 MG TABLET PO SCH ×3 (09:52→17:03)
[2018-09-28] MEDS: ISOSORBIDE DINITRATE (20MG) 20 MG TABLET PO SCH ×2 (09:52→17:03)
[2018-09-28] MEDS: ENOXAPARIN SODIUM 60 MG/0.6 ML DISP.SYRIN SQ SCH ×2 (09:53→21:48)
[2018-09-28 10:41] LABS: BASOPHILS # (AUTO) 0.1 /CMM (0.0-0.2); BASOPHILS % (AUTO) 1.2 % (0.0-2.0); EOSINOPHILS % (AUTO) 1.7 % (0.0-6.0); HEMATOCRIT 33 % (33-45); HEMOGLOBIN 11.1 g/dL (11.5-14.8); LYMPHOCYTES # (AUTO) 1.6 /CMM (0.8-4.8); LYMPHOCYTES % (AUTO) 27.7 % (20.0-44.0); MEAN CORPUSCULAR HGB CONC 33 g/dl (31.0-36.0); MEAN CORPUSCULAR VOLUME 91 fL (82-100); MONOCYTES # (AUTO) 0.5 /CMM (0.1-1.30); MONOCYTES % (AUTO) 8.9 % (2.0-12.0); NEUTROPHILS # (AUTO) 3.4 /CMM (1.8-8.9); NEUTROPHILS % (AUTO) 60.5 % (43.0-81.0); PLATELET COUNT (AUTO) 206 /CMM (150-450); RED BLOOD CELL COUNT(AUTO) 3.69 MIL/uL (4.0-5.2); WHITE BLOOD COUNT (AUTO) 5.7 K/uL (4.3-11.0)
[2018-09-28] MEDS: METOPROLOL TARTRATE 50 MG TABLET PO SCH ×2 (12:00→17:03)
[2018-09-28 12:58] LABS: CALCIUM, SERUM 9.1 mg/dL (8.5-10.1); CREATININE 1.9 mg/dL (0.6-1.3); POTASSIUM 3.5 mmol/L (3.5-5.1)
[2018-09-28 13:03] LABS: BILIRUBIN,TOTAL 0.3 mg/dL (0.2-1.0); MAGNESIUM 2.2 mg/dL (1.8-2.4); TOTAL PROTEIN, SERUM 7.6 g/dL (6.4-8.2)
[2018-09-28 13:13] LABS: PHOSPHORUS 4.2 mg/dL (2.5-4.9)
[2018-09-28 16:00] VITALS: BP 114/56
[2018-09-28] MEDS: SIMVASTATIN 20 MG TABLET PO SCH (17:02)
--- NOTE | 2018-09-28 18:30 | NUR ---
MS RN NOTES CALLED AND SAID HE WILL DISCUSS WITH ABOUT THE DISCHARGE PROCESS AND WILL LET US KNOW ABOUT IT.
[2018-09-28] MEDS: ACETAMINOPHEN 325 MG TABLET PO PRN (18:31)
--- NOTE | 2018-09-28 18:35 | NUR ---
MS RN CLOSING NOTES PT IS LYING ON BED,ALERT/ORIENTED X2.ON ROOM AIR,TOLERATING WELL.NO SOB AND ACUTE DISTRESS NOTED.NO PAIN NOTED FOR NOW.RIGHT UA PICC LINE 3 PORT PRESENT.SITE IS CLEAN,DRY AND INTACT.NO INFILTRATION NOTED.BED IS IN LOW POSITION AND LOCKED,CALL LIGHT IS WITHIN REACH.RESPIRATION IS EVEN AND NON LABORED.NO SIGNIFICANT CHANGES NOTED IN THE SHIFT.PAIN MEDS ARE GIVEN.ENDORSED TO VESSEL SPECIALIST RN FOR JESENIA AND CONTINUE TO MONITOR THE PT PAIN LEVEL.
[2018-09-28 20:00] VITALS: BP 99/45
--- NOTE | 2018-09-28 20:00 | NUR ---
RN INITIAL NOTES RECEIVED PT SITTING ON BED, AT BED SIDE. ALERT/ORIENTED X2.ON ROOM AIR,TOLERATING WELL.NO SOB AND ACUTE DISTRESS NOTED.NO PAIN NOTED FOR NOW.RIGHT UA PICC LINE 3 PORT PRESENT.SITE IS CLEAN,DRY AND INTACT.NO INFILTRATION NOTED.BED IS IN LOW POSITION AND LOCKED,CALL LIGHT IS WITHIN REACH.WILL CONTINUE TO MONITOR PT CLOSELY.
[2018-09-28] MEDS: GABAPENTIN 300 MG CAPSULE PO SCH (21:48)
[2018-09-28] MEDS: ESCITALOPRAM OXALATE (10 MG) 10 MG TABLET PO SCH (21:48)
[2018-09-28] MEDS: *INSULIN REGULAR(HUMULIN R)HUM 100 UNIT/ML VIAL SQ PRN (21:53)
[2018-09-29] VITALS: BP 121/61
[2018-09-29] MEDS: METOPROLOL TARTRATE 50 MG TABLET PO SCH ×3 (00:45→12:39)
[2018-09-29 04:00] VITALS: BP 129/69
[2018-09-29 06:03] LABS: BASOPHILS # (AUTO) 0.1 /CMM (0.0-0.2); BASOPHILS % (AUTO) 1.3 % (0.0-2.0); EOSINOPHILS % (AUTO) 2.5 % (0.0-6.0); HEMATOCRIT 33 % (33-45); HEMOGLOBIN 11.1 g/dL (11.5-14.8); LYMPHOCYTES # (AUTO) 2.5 /CMM (0.8-4.8); LYMPHOCYTES % (AUTO) 32.5 % (20.0-44.0); MEAN CORPUSCULAR HGB CONC 34 g/dl (31.0-36.0); MEAN CORPUSCULAR VOLUME 90 fL (82-100); MONOCYTES # (AUTO) 0.6 /CMM (0.1-1.30); NEUTROPHILS # (AUTO) 4.3 /CMM (1.8-8.9); NEUTROPHILS % (AUTO) 55.7 % (43.0-81.0); PLATELET COUNT (AUTO) 211 /CMM (150-450); WHITE BLOOD COUNT (AUTO) 7.7 K/uL (4.3-11.0)
[2018-09-29 06:15] LABS: CALCIUM, SERUM 9.4 mg/dL (8.5-10.1); CREATININE 1.8 mg/dL (0.6-1.3); POTASSIUM 4.1 mmol/L (3.5-5.1)
--- NOTE | 2018-09-29 06:17 | NUR ---
RN CLOSING NOTES PT IS LYING ON BED,ALERT/ORIENTED X2.ON ROOM AIR,TOLERATING WELL.NO SOB AND ACUTE DISTRESS NOTED. NO PAIN NOTED FOR NOW.RIGHT UA PICC LINE PRESENT S/L.SITE IS CLEAN,DRY AND INTACT.NO INFILTRATION NOTED.RESPIRATION IS EVEN AND NONLABORED. NO SIGNIFICANT CHANGES NOTED IN THE SHIFT.BED IS IN LOW POSITION AND LOCKED,CALL LIGHT IS WITHIN REACH.WILL ENDORSE TO AM RN FOR JESENIA.
[2018-09-29 06:44] VITALS: BP 129/65
--- NOTE | 2018-09-29 07:30 | NUR ---
MS RN AM NOTES RECEIVED PT IN BED, ALERT/ORIENTED X2.ON ROOM AIR,TOLERATING WELL.NO SOB AND ACUTE DISTRESS NOTED.NO PAIN NOTED FOR NOW.RIGHT UA PICC LINE 3 PORT FLUSHES WELL, SITE CLEAR, CDI DRESSING.AMBULATES WITH ASSIST. CCHO DIET.BED IS IN LOW POSITION AND LOCKED,CALL LIGHT IS WITHIN REACH.WILL CONTINUE TO MONITOR THE PT CLOSELY.
[2018-09-29 08:00] VITALS: BP 147/75
--- NOTE | 2018-09-29 08:15 | NUR ---
MS RN NOTES ACCUCHECK DONE BS 283 MG/DL, 12 UNITS HUM R GIVEN SUBCUTANEOUS PER SS.
[2018-09-29] MEDS: BLOOD SUGAR DIAGNOSTIC 1 EACH STRIP IN SCH ×2 (08:22→12:39)
[2018-09-29] MEDS: INSULIN REGULAR, HUMAN 100 UNIT/ML 3 ML VIAL SQ PRN (08:49)
[2018-09-29] MEDS: ASPIRIN EC 81 MG TABLET.DR PO SCH (09:00)
[2018-09-29] MEDS: hydrALAZINE HCL 50 MG TABLET PO SCH ×2 (09:00→12:38)
[2018-09-29] MEDS: ISOSORBIDE DINITRATE (20MG) 20 MG TABLET PO SCH (09:01)
[2018-09-29] MEDS: FUROSEMIDE 40 MG TABLET PO SCH (09:01)
[2018-09-29] MEDS: LISINOPRIL (20MG) 20 MG TABLET PO SCH (09:02)
[2018-09-29] MEDS: AMLODIPINE BESYLATE 5 MG TABLET PO SCH (09:02)
--- NOTE | 2018-09-29 09:30 | NUR ---
MS RN NOTES DUE MEDS GIVEN
[2018-09-29] MEDS ORDERED: ESCI10TA PO (11:37)
[2018-09-29] MEDS ORDERED: AMLO5TAB9 PO (11:37)
[2018-09-29] MEDS: ACETAMINOPHEN 325 MG TABLET PO PRN (15:58)
[2018-09-29 16:00] VITALS: BP 134/67
--- NOTE | 2018-09-29 16:00 | NUR ---
MS RN NOTES PATIENT DISCHARGED TO HOME PER MD IN STABLE CONDITION. PROVIDED DC INSTRUCTIONS, HEALTH TEACHINGS AND MED RECON LIST/PRESCRIPTION. PATIENT TO FOLLOW UP WITH PCP IN 1-2 WEEKS AND WILL MAKE OWN APPOINTMENT. MANDI PICC LINE REMOVED, PRESSURE APPLIED, NO BLEEDING, DRESSING IN PLACE. ALL BELONGINGS CHECKED RETURNED, ALL PAPER WORKS SIGNED. ACCOMPANIED TO LOBBY VIA WHEELCHAIR BY MARK ANTHONY CHANEL AND WILL BE GO HOME VIA PRIVATE CAR BY .
== END 2018-09-29 16:00 | disposition home or self-care (01) | DRG 280 ==
LOC: ER 14:23 → ICU 17:59 → TELE1 09-25 18:16 → MEDSG1 09-26 10:05
PROVIDERS: ADMIT Internal Medicine; ATTEND Family Medicine
PROC: 02HV33Z Insertion of Infusion Device into Superior Vena Cava, Percutaneous Approach (ICD-10-PCS; principal; 2018-09-24)
PROC: B548ZZA Ultrasonography of Superior Vena Cava, Guidance (ICD-10-PCS; 2018-09-24)
DX: I11.0 Hypertensive heart disease with heart failure (principal); J96.01 Acute respiratory failure with hypoxia; I21.A1 Myocardial infarction type 2; N17.0 Acute kidney failure with tubular necrosis; E43 Unspecified severe protein-calorie malnutrition; G93.41 Metabolic encephalopathy; F33.1 Major depressive disorder, recurrent, moderate; L97.409 Non-pressure chronic ulcer of unspecified heel and midfoot with unspecified severity; I50.33 Acute on chronic diastolic (congestive) heart failure; E87.6 Hypokalemia; E11.621 Type 2 diabetes mellitus with foot ulcer; Z91.19 Patient's noncompliance with other medical treatment and regimen; Z90.12 Acquired absence of left breast and nipple; Z85.3 Personal history of malignant neoplasm of breast; Z79.899 Other long term (current) drug therapy; Z87.891 Personal history of nicotine dependence; Z79.82 Long term (current) use of aspirin; Z79.4 Long term (current) use of insulin; Z88.4 Allergy status to anesthetic agent; D63.8 Anemia in other chronic diseases classified elsewhere; E11.65 Type 2 diabetes mellitus with hyperglycemia
CPT/HCPCS: 36415; 36569; 70450-TC; 71045-TC; 80048-TC; 80053-TC; 80061-TC; 82728-TC; 82962-TC; 83540-TC; 83735-TC; 83880; 84100-TC; 84443-TC; 84484-TC; 85025-TC; 85730-TC; 87081-TC; 93307-TC; A9502; C1751; G0378; J1650; J1815; J1940; J2060; J2785; J3490

== ENCOUNTER 2020-05-09 12:32 | Inpatient (IN) | payer MEDICARE, OTHER ==
[~2020-05-09] VITALS: Ht 170.2 cm; Wt 83.5 kg
[~2020-05-09 12:32] MED LIST changes: +AMLO-212 PO; -AMLO10TA7 PO; +ASPI-1420 PO; +ESCI10TA PO; +IBUP-1957 PO; +INSU100I26 SQ; -INSU100V7 SQ; +INSU100V9 SQ; -INSULIN; +SIMV-46 PO; -SIMV20TA6 PO; -SULF1TAB48 PO
[2020-05-09] MEDS ORDERED: IV NS 0.9% 500 ML BAG IV ONE (13:00)
[2020-05-09] MEDS ORDERED: ONDANSETRON HCL/PF 4 MG/2 ML VIAL IVP ONE (13:00)
[2020-05-09] MEDS ORDERED: HYDROMORPHONE INJ 2 MG/ML DISP.SYRIN IV ONE (13:00)
[2020-05-09] MEDS ORDERED: HYDROMORPHONE 1 MG/1 ML DISP.SYRIN ONE ×2 (13:05→13:28)
[2020-05-09] MEDS ORDERED: ONDANSETRON HCL/PF 4 MG/2 ML VIAL ONE (13:05)
--- NOTE | 2020-05-09 13:30 | NUR ---
Accidentally wasted/witnessed partial dose of pain meds. After reviewing order had to pull up appropriate dosage.
--- NOTE | 2020-05-09 14:00 | NUR ---
Pt states "feel better-pain tolerable"
[2020-05-09 14:06] LABS: CALCIUM, SERUM 9.8 mg/dL (8.5-10.1); CREATININE 1.6 mg/dL (0.6-1.3); POTASSIUM 4.6 mmol/L (3.5-5.1)
[2020-05-09] MEDS ORDERED: AMLO-213 PO (14:12)
[2020-05-09 14:33] LABS: BASOPHILS % (AUTO) 0.6 % (0.0-2.0); EOSINOPHILS % (AUTO) 0.7 % (0.0-6.0); HEMATOCRIT 31 % (33-45); LYMPHOCYTES % (AUTO) 26.3 % (20.0-44.0); MEAN CORPUSCULAR HGB CONC 33 g/dl (31.0-36.0); MEAN CORPUSCULAR VOLUME 90 fL (82-100); MONOCYTES # (AUTO) 0.5 /CMM (0.1-1.30); MONOCYTES % (AUTO) 6.3 % (2.0-12.0); NEUTROPHILS # (AUTO) 5.1 /CMM (1.8-8.9); NEUTROPHILS % (AUTO) 66.1 % (43.0-81.0); PLATELET COUNT (AUTO) 221 /CMM (150-450); RED BLOOD CELL COUNT(AUTO) 3.39 MIL/uL (4.0-5.2); WHITE BLOOD COUNT (AUTO) 7.8 K/uL (4.3-11.0)
--- NOTE | 2020-05-09 14:58 | NUR ---
CALLED NURSING SUP FOR M/S BED.
--- NOTE | 2020-05-09 15:38 | NUR ---
updated w/plan of care. Await admission. No beds available at this time
[2020-05-09] MEDS ORDERED: IBUPROFEN 800 MG TABLET PO PRN (18:00)
[2020-05-09] MEDS ORDERED: TRAMADOL HCL 50 MG TABLET PO PRN (18:00)
[2020-05-09] MEDS: HYDROCODONE/APAP 5/325MG TABLET PO PRN (18:23)
[2020-05-09] MEDS: SIMVASTATIN 20 MG TABLET PO SCH (18:24)
[2020-05-09] MEDS: CYCLOBENZAPRINE 10 MG TABLET PO SCH (18:24)
[2020-05-09] MEDS: IV 1/2NS 1000 ML 1,000 ML IV PRN ×2 (18:24→20:53)
[2020-05-09] MEDS: HEPARIN SODIUM, PORCINE 5000 UNITS/1 ML VIAL SQ SCH (18:27)
[2020-05-09] MEDS ORDERED: ACETAMINOPHEN 325 MG TABLET PO PRN (18:30)
[2020-05-09] MEDS ORDERED: DEXTROSE 50%-WATER 50 ML DISP.SYRIN IV PRN (18:30)
--- NOTE | 2020-05-09 18:30 | NUR ---
Verified order for Heparin SQ with BUSINESS SYSTEMS ADVISOR Willis started at 1830 dain was told "its OK I ordered it"
--- NOTE | 2020-05-09 19:00 | NUR ---
Nurse David Kendrick w/FRANCO Garcia for Continuity of Care
--- NOTE | 2020-05-09 19:13 | NUR ---
BED 309
--- NOTE | 2020-05-09 19:20 | NUR ---
PT CAME IN C/O BACK PAIN. PT STATES THAT HER "PAIN IS THE SAME, BUT TOLERABLE". PT INDICATES THAT SHE HAS PAIN IN HER LT LOWER BACK, HIP,LOWER EXTREMITY. BREATHING IS EVEN AND UNLABORED. VSS.
--- NOTE | 2020-05-09 19:33 | NUR ---
REPORT GIVEN TO FRANCO BERNARD FOR JESENIA
[2020-05-09 20:00] VITALS: BP 165/82
--- NOTE | 2020-05-09 20:06 | NUR ---
PT TRANSFERRED IN STABLE CONDITION TO ROOM 309.
[2020-05-09 20:34] VITALS: BP 165/82
[2020-05-09] MEDS ORDERED: IBUPROFEN 400 MG TABLET PO PRN (20:40)
[2020-05-09] MEDS: ESCITALOPRAM OXALATE (10 MG) 10 MG TABLET PO SCH (22:21)
[2020-05-09] MEDS: GABAPENTIN 300 MG CAPSULE PO SCH (22:22)
[2020-05-09] MEDS: BLOOD SUGAR DIAGNOSTIC 1 EACH STRIP VI SCH (22:27)
--- NOTE | 2020-05-09 23:16 | NUR ---
MS/RN OPENING NOTE Patient arrived @ 2006 via gurney. VS BP165/82 P93 R19 T98.2 [id number]%. Afebrile. Patient c/o pain level 7 in left lower back. Patient is A/O x4, on bed rest. PERRLA. Lips intact. Mucous membranes moist and pink. EENT WNL. PERRLA. No JVD. CRP <3seconds. Brachial and pedal pulses 2+, symmetrical. Breath sounds even, clear, unlabored on room air. No signs of acute distress or SOB. Skin warm, pink, dry, appropriate for ethnicity. Partial thickness loss noted on lateral side of right big toe. Photo taken and documented in chart. IV site right wrist 22g running 0.45 NS @ 75 ml/hr. No redness or infiltration. Abdomen round, soft, non-tender. BS active. Patient is continent. Laser Beam Machine Operator strength 5+. Good mobility in all extremities. All belongings and valuables documented. Patient oriented to room. Bed in low position, wheels locked, side rails up x2, call light within reach.
[2020-05-10] MEDS: HYDROMORPHONE INJ 2 MG/ML DISP.SYRIN IV PRN ×3 (01:42→20:55)
--- NOTE | 2020-05-10 04:51 | NUR ---
MS/RN NOTE Patient BP165/82. Patient pain level 8, aching and throbbing in left lower back. Administered PRN pain medication as ordered. BP100/65 HR82. Pain level 2. Medication effective. Will continue to monitor.
[2020-05-10] MEDS: HEPARIN SODIUM, PORCINE 5000 UNITS/1 ML VIAL SQ SCH ×2 (05:35→18:16)
[2020-05-10] MEDS: BLOOD SUGAR DIAGNOSTIC 1 EACH STRIP VI SCH ×4 (06:54→21:59)
--- NOTE | 2020-05-10 07:18 | NUR ---
MS/RN CLOSING NOTE Patient A/O x4. Afebrile. Patient c/o pain level 7 in left lower back. Brachial and pedal pulses 2+, symmetrical. Breath sounds even, clear, unlabored on room air. No signs of acute distress or SOB. Skin warm, pink, dry, appropriate for ethnicity. Partial thickness loss noted on lateral side of right big toe. IV site right wrist 22g running 0.45 NS @ 75 ml/hr. No redness or infiltration. Abdomen round, soft, non-tender. BS active. Patient is continent. Patient oriented to room. Bed in low position, wheels locked, side rails up x2, call light within reach.
--- NOTE | 2020-05-10 07:40 | NUR ---
MS/RN Opening note Patient received from steward/stewardess night. Sleeping soundly at start of shift, appears in no distress or discomfort. Safety measures in place, will continue to monitor and ensure safety and comfort.
[2020-05-10 08:00] VITALS: BP 104/62
[2020-05-10] MEDS ORDERED: CLONIDINE HCL 0.1 MG TABLET PO PRN (08:00)
[2020-05-10 08:01] LABS: THYROID STIMULATING HORMONE 2.536 uIU/mL (0.358-3.74)
[2020-05-10] MEDS: ASPIRIN EC 81 MG TABLET.DR PO SCH (09:46)
[2020-05-10] MEDS: CYCLOBENZAPRINE 10 MG TABLET PO SCH ×3 (09:49→17:19)
[2020-05-10] MEDS: AMLODIPINE BESYLATE 10 MG TABLET PO SCH (09:50)
[2020-05-10] MEDS: LISINOPRIL (20MG) 20 MG TABLET PO SCH (09:51)
[2020-05-10 10:04] LABS: ALBUMIN 4.1 g/dL (3.4-5.0); BILIRUBIN,DIRECT 0.3 mg/dL (0.0-0.2); BILIRUBIN,TOTAL 0.5 mg/dL (0.2-1.0); CALCIUM, SERUM 10.3 mg/dL (8.5-10.1); CREATININE 1.7 mg/dL (0.6-1.3); MAGNESIUM 2.6 mg/dL (1.8-2.4); PHOSPHORUS 4.8 mg/dL (2.5-4.9); POTASSIUM 5.4 mmol/L (3.5-5.1); TOTAL PROTEIN, SERUM 9.2 g/dL (6.4-8.2)
--- NOTE | 2020-05-10 10:30 | NUR ---
MS/RN S/B Kat JACKAROO Seen by JACKAROO - pain, nausea and emesis management as needed. Awaiting PT and nephro consults.
[2020-05-10 11:14] LABS: BASOPHILS # (AUTO) 0.1 /CMM (0.0-0.2); BASOPHILS % (AUTO) 0.7 % (0.0-2.0); EOSINOPHILS % (AUTO) 1.9 % (0.0-6.0); HEMATOCRIT 27 % (33-45); HEMOGLOBIN 8.8 g/dL (11.5-14.8); LYMPHOCYTES # (AUTO) 2.8 /CMM (0.8-4.8); LYMPHOCYTES % (AUTO) 35.2 % (20.0-44.0); MEAN CORPUSCULAR HGB CONC 33 g/dl (31.0-36.0); MEAN CORPUSCULAR VOLUME 92 fL (82-100); MONOCYTES # (AUTO) 0.6 /CMM (0.1-1.30); MONOCYTES % (AUTO) 8.1 % (2.0-12.0); NEUTROPHILS # (AUTO) 4.2 /CMM (1.8-8.9); NEUTROPHILS % (AUTO) 54.1 % (43.0-81.0); PLATELET COUNT (AUTO) 215 /CMM (150-450); RED BLOOD CELL COUNT(AUTO) 2.94 MIL/uL (4.0-5.2); WHITE BLOOD COUNT (AUTO) 7.8 K/uL (4.3-11.0)
[2020-05-10] MEDS ORDERED: SODIUM POLYSTYRENE SULFONATE 15 G/60 ML BOTTLE PO ONE (11:30)
[2020-05-10] MEDS: ONDANSETRON HCL/PF 4 MG/2 ML VIAL IVP PRN ×2 (12:53→20:54)
[2020-05-10] MEDS: INSULIN REGULAR, HUMAN 100 UNIT/ML 3 ML VIAL SQ PRN (12:54)
--- NOTE | 2020-05-10 13:00 | NUR ---
MS/RN Pain Complaining of pain to lower back 02/13. Dilaudid 1mg administered along with zofran. Will monitor effectiveness.
--- NOTE | 2020-05-10 14:30 | NUR ---
MS/RN S/B Dr Wadr Seen by Dr Ward - made aware of potassium level being 5.4, kayexelate 30mg ordered.
[2020-05-10] MEDS: IV 1/2NS 1000 ML 1,000 ML IV PRN (15:35)
[2020-05-10 16:00] VITALS: BP 90/48
[2020-05-10] MEDS: FERROUS SULFATE (325 MG) 325 MG/TAB TABLET PO SCH (17:19)
[2020-05-10] MEDS: SIMVASTATIN 20 MG TABLET PO SCH (17:19)
--- NOTE | 2020-05-10 17:47 | NUR ---
MS/RN Blood sugar Blood sugar at 5p - 83, no coverage needed, patient encouraged to eat dinner to maintain glucose level.
--- NOTE | 2020-05-10 18:22 | NUR ---
MS/RN End note Patient remains in stable condition, all needs attended, will endorse to night assistant.
--- NOTE | 2020-05-10 19:00 | NUR ---
RN MS OPENING NOTES RECEIVED PATIENT IN BED AWAKE ALERT AND ORIENTED X4, RESPIRATIONS EVEN AND UNLABORED WITH EQUAL RISE AND FALL OF CHEST. DENIES ANY PAIN AT THIS TIME, IV SITE LEFT FA #22 G INTACT AND PATENT, NO REDNESS, NO INFILTRATION PRESENT, IVF RUNNING ORDERED, ORIENTED TO STAFF AND CALL LIGHT AND KEPT WITHIN REACH, LOW BED AND LOCKED, BED ALARM IN PLACE, ALL NEEDS ATTENDED AT THIS TIME WILL CONTINUE TO MONITOR.
[2020-05-10 20:00] VITALS: BP_SYST 117; BP_DIAS 51; BP_DIAS 59
--- NOTE | 2020-05-10 21:00 | NUR ---
rn ms notes patient complained of pain to back states 8/ requested for pain medication and anti nausea medication. zofran as ordered prn given. dilaudid prn as ordered given 0.5ml given rest witnessed and wasted with another RN. will continue to monitor effectiveness.
[2020-05-10] MEDS: ESCITALOPRAM OXALATE (10 MG) 10 MG TABLET PO SCH (21:48)
[2020-05-10] MEDS: GABAPENTIN 300 MG CAPSULE PO SCH (21:48)
[2020-05-10] MEDS: *INSULIN REGULAR(HUMULIN R)HUM 100 UNIT/ML VIAL SQ PRN (21:58)
[2020-05-11] MEDS: IV 1/2NS 1000 ML 1,000 ML IV PRN ×2 (05:00→17:31)
[2020-05-11] MEDS: HEPARIN SODIUM, PORCINE 5000 UNITS/1 ML VIAL SQ SCH ×2 (05:42→17:25)
[2020-05-11] MEDS: BLOOD SUGAR DIAGNOSTIC 1 EACH STRIP VI SCH ×4 (05:50→21:27)
[2020-05-11] MEDS: INSULIN REGULAR, HUMAN 100 UNIT/ML 3 ML VIAL SQ PRN ×2 (05:51→17:24)
[2020-05-11 06:18] LABS: BASOPHILS # (AUTO) 0.1 /CMM (0.0-0.2); EOSINOPHILS % (AUTO) 3.4 % (0.0-6.0); HEMATOCRIT 29 % (33-45); HEMOGLOBIN 9.2 g/dL (11.5-14.8); LYMPHOCYTES # (AUTO) 2.8 /CMM (0.8-4.8); LYMPHOCYTES % (AUTO) 35.9 % (20.0-44.0); MEAN CORPUSCULAR HGB CONC 32 g/dl (31.0-36.0); MEAN CORPUSCULAR VOLUME 91 fL (82-100); MONOCYTES # (AUTO) 0.7 /CMM (0.1-1.30); MONOCYTES % (AUTO) 9.1 % (2.0-12.0); NEUTROPHILS # (AUTO) 3.9 /CMM (1.8-8.9); NEUTROPHILS % (AUTO) 50.6 % (43.0-81.0); PLATELET COUNT (AUTO) 224 /CMM (150-450); RED BLOOD CELL COUNT(AUTO) 3.14 MIL/uL (4.0-5.2); WHITE BLOOD COUNT (AUTO) 7.7 K/uL (4.3-11.0)
[2020-05-11 06:36] LABS: CREATININE 2.5 mg/dL (0.6-1.3); POTASSIUM 4.3 mmol/L (3.5-5.1)
--- NOTE | 2020-05-11 06:41 | NUR ---
FRANCO MS CLOSING NOTES PATIENT IN BED AWAKE ALERT AND ORIENTED X4, RESPIRATIONS EVEN AND UNLABORED WITH EQUAL RISE AND FALL OF CHEST. DENIES ANY PAIN AT THIS TIME, IV SITE LEFT FA #22 G INTACT AND PATENT, NO REDNESS, NO INFILTRATION PRESENT, IVF RUNNING ORDERED, CALL LIGHT KEPT WITHIN REACH, LOW BED AND LOCKED, BED ALARM IN PLACE, ALL NEEDS ATTENDED AT THIS TIME WILL CONTINUE TO MONITOR AND ENDORSE TO NEXT SHIFT, PATIENT HAD A LARGE BOWEL MN. Addendum: 05/11/20 at 0650 by BARBY JOY RN PATIENT HAD A LARGE BOWEL MOVEMENT.
--- NOTE | 2020-05-11 07:30 | NUR ---
MS/RN Opening note Patient received from nightshift. A/O X4, vital signs stable, no fevers noted. IV fluids infusing via left forearm 22g , no signs of infiltration seen. Pain level at thistime 02/13, will administer pain medication asordered. Safety measures in place, side rails X3 in upright position, call light within reach. Will continue to monitor andensure safety.
[2020-05-11 08:00] VITALS: BP 137/74
--- NOTE | 2020-05-11 09:00 | NUR ---
MS/RN Medications Morning medications administered as ordered, no difficulty swallowing.
[2020-05-11] MEDS: ASPIRIN EC 81 MG TABLET.DR PO SCH (09:07)
[2020-05-11] MEDS: AMLODIPINE BESYLATE 10 MG TABLET PO SCH (09:07)
[2020-05-11] MEDS: FERROUS SULFATE (325 MG) 325 MG/TAB TABLET PO SCH ×2 (09:07→17:23)
[2020-05-11] MEDS: LISINOPRIL (20MG) 20 MG TABLET PO SCH (09:07)
[2020-05-11] MEDS: CYCLOBENZAPRINE 10 MG TABLET PO SCH ×3 (09:07→17:23)
[2020-05-11 10:07] LABS: PTH, INTACT 38 pg/mL (15-65)
--- NOTE | 2020-05-11 10:45 | NUR ---
MS/RN S/B Kat SENIOR C SOFTWARE ENGINEER Seen by SENIOR C SOFTWARE ENGINEER - discharge planning to acute rehab. veterinary practice manager made aware and will arrange evaluation.
--- NOTE | 2020-05-11 12:00 | NUR ---
MS/RN Blood sugar Bloodsugar at noon 161, insulin coverageasper sliding scale.
[2020-05-11] MEDS: HYDROCODONE/APAP 5/325MG TABLET PO PRN ×2 (12:41→23:31)
[2020-05-11 16:00] VITALS: BP 115/62
--- NOTE | 2020-05-11 17:00 | NUR ---
MS/RN Blood sugar Blood sugar at 5p - 174, insulin coverage as per sliding scale.
[2020-05-11] MEDS: SIMVASTATIN 20 MG TABLET PO SCH (17:23)
--- NOTE | 2020-05-11 18:47 | NUR ---
MS/RN End note Patient remains in stable condition, no changes to plan of care. Discharge planning to [facility] in morning.
--- NOTE | 2020-05-11 20:18 | NUR ---
MS RN OPENING NOTES: RECEIVED PATIENT IN BED, AWAKE, NO COMPLAINS OF PAIN OR DISCOMFORT THIS TIME. NO FACIAL GRIMACE NOTED DURING ROUNDS. REALITY ORIENTATION DONE. WILL ADMINISTER ORDERED MEDICATIONS. SAFETY AND FALL PRECAUTIONS OBSERVED. IVF ON GOING. SITE CHECKED , NO PHLEBITIS NOTED THIS TIME.WILL CONTINUE TO MONITOR PATIENT.
[2020-05-11] MEDS: GABAPENTIN 300 MG CAPSULE PO SCH (21:21)
[2020-05-11] MEDS: ESCITALOPRAM OXALATE (10 MG) 10 MG TABLET PO SCH (21:27)
[2020-05-11] MEDS: *INSULIN REGULAR(HUMULIN R)HUM 100 UNIT/ML VIAL SQ PRN (21:30)
[2020-05-12] MEDS: INSULIN REGULAR, HUMAN 100 UNIT/ML 3 ML VIAL SQ PRN ×3 (06:28→17:38)
[2020-05-12] MEDS: HEPARIN SODIUM, PORCINE 5000 UNITS/1 ML VIAL SQ SCH ×2 (06:29→18:09)
[2020-05-12] MEDS: BLOOD SUGAR DIAGNOSTIC 1 EACH STRIP VI SCH ×4 (06:31→22:40)
--- NOTE | 2020-05-12 06:48 | NUR ---
MS RN CLOSING NOTES: PATIENT RESTING NI BED COMFORTABLY. PATIENT HAS NOTED EPISODES OF CONFUSION. BLOOD GLUCOSE LEVELS CHECKED PRE BREAKFAST. ADMINISTERED ORDERED MEDICATIONS. SAFETY AND ALL PRECAUTIONS OBSERVED. BED ALARM KEPT ON. PATIENT PULLED OUT HIS IV DURING THE SHIFT, CHARGE NURSE MADE AWARE. WILL CONTINUE TO MONITOR PATIENT.WILL ENDORSE PATIENT TO MISSILE CONTROL PILOT NURSE.
--- NOTE | 2020-05-12 07:45 | NUR ---
RN OPENING NOTE: RECEIVED PT LYING IN BED. NO ACUTE DISTRESS NOTED. PT A+OX 3, DANISH SPEAKING, ABLE TO MAKE NEEDS KNOWN. PT ASSISTED WITH BED MOBILITY. AMBULATORY WITH ASSISTANCE TO COMMODE. PERICARE DONE. PT OCCASIONALLY INCONTINENT AND NEEDS ASSISTANCE WITH CLEANING.COMPLIANT WITH MEDICATIONS AND PLAN OF CARE. ADEQUATE PO INTAKE AT PRESAENT TIME. WILL CONT TO MONITOR
[2020-05-12 08:00] VITALS: BP 135/87
[2020-05-12] MEDS: AMLODIPINE BESYLATE 10 MG TABLET PO SCH (08:18)
[2020-05-12] MEDS: CYCLOBENZAPRINE 10 MG TABLET PO SCH ×3 (08:19→17:42)
[2020-05-12] MEDS: FERROUS SULFATE (325 MG) 325 MG/TAB TABLET PO SCH ×2 (08:19→17:42)
[2020-05-12] MEDS: ASPIRIN EC 81 MG TABLET.DR PO SCH (08:19)
--- NOTE | 2020-05-12 09:07 | NUR ---
WOUND CARE CONSULT: PT PRESENTS WITH RIGHT GREAT TOE DRY ULCERS/CALLUSES, PRESENT ON ADMISSION. RECOMMEND DPM CONSULT. DR JOHNSON NOTIFIED OF CONSULT REQUEST. PT IS INCONTINENT. RECOMMENDATIONS MADE FOR SKIN PROTECTION. DISCUSSED WITH NURSING STAFF. MD IN AGREEMENT WITH PLAN OF CARE.
[2020-05-12 09:29] LABS: ALBUMIN 3.2 g/dL (3.4-5.0); BILIRUBIN,TOTAL 0.3 mg/dL (0.2-1.0); CALCIUM, SERUM 9.2 mg/dL (8.5-10.1); CREATININE 1.9 mg/dL (0.6-1.3); MAGNESIUM 2.3 mg/dL (1.8-2.4); PHOSPHORUS 3.7 mg/dL (2.5-4.9); POTASSIUM 4.4 mmol/L (3.5-5.1); TOTAL PROTEIN, SERUM 7.7 g/dL (6.4-8.2)
[2020-05-12] MEDS ORDERED: Z GUARD REMEDY 2 OZ OINT TP PRN (09:30)
[2020-05-12] MEDS: Z GUARD REMEDY 2 OZ OINT TP SCH (09:47)
[2020-05-12] MEDS ORDERED: FERR325T28 PO (10:32)
[2020-05-12] MEDS ORDERED: Blood Sugar Diagnostic VI (10:32)
[2020-05-12] MEDS ORDERED: *INS REG SQ (10:32)
[2020-05-12] MEDS ORDERED: CYCL10TA9 PO (10:32)
[2020-05-12] MEDS ORDERED: INSU100V28 SQ (10:32)
[2020-05-12] MEDS ORDERED: HYDR-3972 PO (10:32)
[2020-05-12 16:00] VITALS: BP 122/64
[2020-05-12 17:18] LABS: BASOPHILS # (AUTO) 0.1 /CMM (0.0-0.2); BASOPHILS % (AUTO) 1.3 % (0.0-2.0); HEMATOCRIT 26 % (33-45); HEMOGLOBIN 8.7 g/dL (11.5-14.8); LYMPHOCYTES # (AUTO) 1.4 /CMM (0.8-4.8); LYMPHOCYTES % (AUTO) 26.3 % (20.0-44.0); MEAN CORPUSCULAR HGB CONC 33 g/dl (31.0-36.0); MEAN CORPUSCULAR VOLUME 89 fL (82-100); MONOCYTES # (AUTO) 0.5 /CMM (0.1-1.30); MONOCYTES % (AUTO) 9.5 % (2.0-12.0); NEUTROPHILS # (AUTO) 3.3 /CMM (1.8-8.9); NEUTROPHILS % (AUTO) 59.9 % (43.0-81.0); PLATELET COUNT (AUTO) 203 /CMM (150-450); RED BLOOD CELL COUNT(AUTO) 2.95 MIL/uL (4.0-5.2); WHITE BLOOD COUNT (AUTO) 5.5 K/uL (4.3-11.0)
[2020-05-12] MEDS: SIMVASTATIN 20 MG TABLET PO SCH (17:42)
--- NOTE | 2020-05-12 19:20 | NUR ---
MS/RN OPENING NOTES: RECEIVED PATIENT IN BED, AWAKE, A/OX2. CITIZEN OF [place] SPEAKING BUT UNDERSTANDS MINIMAL [place]. HAS EPISODES OF CONFUSION. NO IV LINE PRESENT. PER DAY SHIFT RN, PT TAKES THE LINE OUT AND REFUSES. IS AWARE. EXPLAINED TO PT IMPORTANCE OF IV LINE IN CASE OF EMERGENCIES AND STILL REFUSED. PER PT "I DON'T NEED IT, I GO HOME". NO COMPLAINS OF PAIN OR DISCOMFORT THIS TIME. SAFETY AND FALL PRECAUTIONS IN PLACE. BED IN LOW, LOCKED POSITION WITH SR UPX2. BED ALARM ON, CALL LIGHT WITHIN REACH. WILL CONTINUE TO MONITOR.
[2020-05-12 20:00] VITALS: BP 141/67
[2020-05-12] MEDS: GABAPENTIN 300 MG CAPSULE PO SCH (22:21)
[2020-05-12] MEDS: ESCITALOPRAM OXALATE (10 MG) 10 MG TABLET PO SCH (22:21)
[2020-05-12] MEDS: *INSULIN REGULAR(HUMULIN R)HUM 100 UNIT/ML VIAL SQ PRN (22:40)
--- NOTE | 2020-05-13 | NUR ---
MS/RN NOTES: PT. REFUSES IV LINE. IS AWARE. EXPLAINED TO PT IMPORTANCE OF IV LINE IN CASE OF EMERGENCIES AND STILL REFUSED. PER PT "I DON'T NEED IT, I GO HOME".
[2020-05-13] MEDS: HEPARIN SODIUM, PORCINE 5000 UNITS/1 ML VIAL SQ SCH (06:30)
--- NOTE | 2020-05-13 06:32 | NUR ---
MS/RN NOTES: PT REFUSES HEPARIN SHOT. PER PT "I WANNA GO HOME. I DON'T NEED IT."
[2020-05-13] MEDS: BLOOD SUGAR DIAGNOSTIC 1 EACH STRIP VI SCH ×2 (06:37→12:02)
[2020-05-13] MEDS: INSULIN REGULAR, HUMAN 100 UNIT/ML 3 ML VIAL SQ PRN ×2 (06:38→12:04)
[2020-05-13 07:07] LABS: *SPE A/G RATIO 0.8 (0.7-1.7); *SPE ALBUMIN 3.8 g/dL (2.9-4.4); *SPE ALPHA-1-GLOBULIN 0.3 g/dL (0.0-0.4); *SPE ALPHA-2-GLOBULIN 1.2 g/dL (0.4-1.0); *SPE BETA GLOBULIN 1.4 g/dL (0.7-1.3); *SPE GLOBULIN, TOTAL 4.7 g/dL (2.2-3.9); *SPE M-SPIKE Not Observed g/dL (Not Observed); *SPEGAMMA GLOBULIN 1.9 g/dL (0.4-1.8)
--- NOTE | 2020-05-13 07:33 | NUR ---
MS/RN CLOSING NOTES: PATIENT REMAINS IN BED, AWAKE, A/OX2. MICHAEL SPEAKING BUT UNDERSTANDS MINIMAL [place]. WITH EPISODES OF CONFUSION. NO IV LINE PRESENT. NO COMPLAINS OF PAIN OR DISCOMFORT THIS TIME. SAFETY AND FALL PRECAUTIONS IN PLACE. BED IN LOW, LOCKED POSITION WITH SR UPX2. BED ALARM ON, CALL LIGHT WITHIN REACH. ENDORSED TO DAY SHIFT FOR [place]ESEN[place].
[2020-05-13 08:00] VITALS: BP 155/82
--- NOTE | 2020-05-13 08:00 | NUR ---
RN OPENING NOTE: RECEIVED PATIENT IN BED, AWAKE, A/OX1, CONFUSED AND DISORIENTED. NEEDS FREQUENT REORIENTATION. , NO ACUTE DISTRESS NOTED. PRIMARILY MICHAEL SPEAKING, ABLE TO MAKE NEEDS KNOWN IN [place] NO COMPLAINS OF PAIN OR DISCOMFORT THIS TIME. ASSISTED WITH REPOSITIONING AND PERICARE. WOUND TO LEFT LARGE TOE WITHOUT S/SX OF INFECTION AT PRESENTT IE. SAFETY AND FALL PRECAUTIONS IN PLACE. BED IN LOW, LOCKED POSITION WITH SR UPX2. BED ALARM ON, CALL LIGHT WITHIN REACH. WILL CONTINUE TO MONITOR.
[2020-05-13] MEDS: ASPIRIN EC 81 MG TABLET.DR PO SCH (09:17)
[2020-05-13] MEDS: AMLODIPINE BESYLATE 10 MG TABLET PO SCH (09:18)
[2020-05-13] MEDS: CYCLOBENZAPRINE 10 MG TABLET PO SCH ×2 (09:18→12:52)
[2020-05-13] MEDS: Z GUARD REMEDY 2 OZ OINT TP SCH (09:18)
[2020-05-13] MEDS: FERROUS SULFATE (325 MG) 325 MG/TAB TABLET PO SCH (09:18)
[2020-05-13 16:00] VITALS: BP 135/71
--- NOTE | 2020-05-13 16:30 | NUR ---
BOTTOM LINER NOTE: PT DISCHARGED HOME WITH SON IN STABLE CONDITION VIA WHEEL CHAIR AND TO BE TRANSPORTED HOME VIA PRIVATE VEHICLE. VSS, AFEBRILE AND NO SOB NOTED. EDUCATED SON RE EXIT CARE AND NEED TO FOLLOW UP WITH HOSPICE CARE. IV DC'D AND PT ID BAND REMOVED.
== END 2020-05-13 17:00 | DRG 551 ==
LOC: ER 12:34 → MED 19:47
PROVIDERS: ADMIT Nurse Practitioner Acute Care
DX: M48.061 Spinal stenosis, lumbar region without neurogenic claudication (principal); N17.0 Acute kidney failure with tubular necrosis; I13.0 Hypertensive heart and chronic kidney disease with heart failure and stage 1 through stage 4 chronic kidney disease, or unspecified chronic kidney disease; D68.59 Other primary thrombophilia; E11.22 Type 2 diabetes mellitus with diabetic chronic kidney disease; E11.65 Type 2 diabetes mellitus with hyperglycemia; N18.9 Chronic kidney disease, unspecified; D63.8 Anemia in other chronic diseases classified elsewhere; Z85.3 Personal history of malignant neoplasm of breast; Z90.12 Acquired absence of left breast and nipple; Z79.4 Long term (current) use of insulin; Z88.4 Allergy status to anesthetic agent; Z79.82 Long term (current) use of aspirin; Z79.899 Other long term (current) drug therapy; I50.9 Heart failure, unspecified; F32.9 Major depressive disorder, single episode, unspecified; E83.52 Hypercalcemia; Z74.09 Other reduced mobility; E78.5 Hyperlipidemia, unspecified; E11.621 Type 2 diabetes mellitus with foot ulcer; E11.42 Type 2 diabetes mellitus with diabetic polyneuropathy; L97.519 Non-pressure chronic ulcer of other part of right foot with unspecified severity; M47.816 Spondylosis without myelopathy or radiculopathy, lumbar region; M77.9 Enthesopathy, unspecified
CPT/HCPCS: 36415; 72100-TC; 72131-TC; 76770-TC; 80048-TC; 80053-TC; 80061-TC; 80076-TC; 82550-TC; 82553; 82962-TC; 83540-TC; 83735-TC; 83970; 84100-TC; 84155; 84165; 84443-TC; 84484-TC; 85025-TC; 85730-TC; 87081-TC; 97112-TC; 97530-TC; C9803; G0378; J1170; J1644; J1815; J2405; J3490; J7040; J7070